=== PATIENT | female | born 1990 | race Two or more races ===

== ENCOUNTER → 2023-03-05 | Emergency (ER) | payer OTHER ==
[~2023-03-05] VITALS: Ht 147.3 cm; Wt 66.7 kg
[~2023-03-05] MED LIST: ANTICONCEPTIVOS
== END | disposition left against medical advice (07) ==
LOC: ER 13:02
DX: Z53.21 Procedure and treatment not carried out due to patient leaving prior to being seen by health care provider (principal)

== ENCOUNTER 2024-09-07 13:34 | Inpatient (IN) | payer OTHER ==
[~2024-09-07] VITALS: Ht 147.3 cm; Wt 85.7 kg
[2024-09-07 14:23] LABS: URINE BILIRRUBIN NEGATIVE (NEGATIVE); URINE BLOOD NEGATIVE; URINE GLUCOSE NEGATIVE (NEGATIVE); URINE KETONE NEGATIVE (NEGATIVE); URINE LEUKOCYTE NEGATIVE; URINE NITRATE NEGATIVE; URINE PROTEIN NEGATIVE (NEGATIVE); URINE UROBILINOGEN 0.2 E.U./dl
[2024-09-07 14:28] LABS: URINE BACTERIA 2396.2 uL (0.0-1933); URINE EPITHELIAL CELLS 20.2 uL (0.0-38.8); URINE RBC 2.2 uL (0.0-20.8); URINE WBC 21.5 uL (0.0-23.2)
[2024-09-07 14:31] LABS: BASO % 0.2 % (0.1-1.2); EOS # 0.32 (0.04-0.54); EOS % 2.4 % (0.7-7.0); HEMATOCRIT 36.4 % (34.1-44.9); HEMOGLOBIN 13.3 g/dL (11.2-15.7); LYMPH # 1.53 (1.18-3.74); LYMPH % 11.5 % (19.3-53.1); MEAN CORPUSCULAR HEMOGLOBIN 29.2 pg (25.6-32.2); MONO # 1.15 (0.24-0.82); MONO % 8.7 % (4.7-12.5); NEUT # 10.16 (1.56-6.13); NEUT % 76.6 % (34.0-71.1); PLATELET COUNT 160 K/uL (163-369); RED BLOOD COUNT 4.56 M/uL (3.93-5.22); RED CELL DISTRIBUTION WIDTH 13.6 % (11.6-14.4)
[2024-09-07 15:20] LABS: INR 0.99; PARTIAL THROMBOPLASTIN TIME 24.8 SECONDS (22.0-34.0); PROTHROMBIN TIME 10.8 SECONDS (9.0-11.5)
[2024-09-07 15:35] LABS: URINE COLOR YELLOW
[2024-09-07 15:36] LABS: URINE APPEARANCE SL CLOUDY
[2024-09-07 15:37] LABS: TYPE CELLS SQUAMOUS; URINE MUCUS SCANT
[2024-09-10 19:57] VITALS: BP 104/68
[2024-09-10] MEDS ORDERED: PRENATAL TABLE1 EAC4 PO (20:39)
[2024-09-10] MEDS ORDERED: ADULT LOW DOSE81 M1 PO (20:39)
[2024-09-10] MEDS ORDERED: ERYTHROMYCIN BASE OPHT 1GM EACH TUBE OP ONE ×2 (20:44→20:50)
[2024-09-10] MEDS ORDERED: OXYTOCIN 10 UNITS/ML VIAL ONE ×3 (20:44→20:50)
[2024-09-10] MEDS ORDERED: RINGERS SOLUTION,LACTATED 1,000 ML IV SCH ×2 (21:00→23:15)
[2024-09-10] MEDS ORDERED: CEFOXITIN SODIUM 2,000 MG VIAL IV ONE (21:11)
[2024-09-10] MEDS ORDERED: KETOROLAC TROMETHAMINE 60 MG VIAL IM STA (23:10)
[2024-09-10] MEDS ORDERED: CHLORHEXIDINE GLUCONATE 120 ML BOTTLE TOP ONE (23:15)
[2024-09-10] MEDS ORDERED: OXYTOCIN 1,000 ML IV SCH (23:15)
[2024-09-10] MEDS ORDERED: MORPHINE SULFATE 4 MG/ML VIAL IV PRN (23:30)
[2024-09-10] MEDS ORDERED: MORPHINE SULFATE 4 MG/ML VIAL IV ONE (23:40)
[2024-09-11] MEDS ORDERED: MORPHINE SULFATE 4 MG/ML VIAL IV ONE (00:10)
[2024-09-11] MEDS ORDERED: OXYTOCIN 10 UNITS/ML VIAL ONE (01:02)
[2024-09-11 02:03] LABS: BASO % 0.3 % (0.1-1.2); EOS # 0.14 (0.04-0.54); EOS % 0.7 % (0.7-7.0); HEMATOCRIT 30.2 % (34.1-44.9); HEMOGLOBIN 11.3 g/dL (11.2-15.7); LYMPH # 1.35 (1.18-3.74); LYMPH % 6.4 % (19.3-53.1); MONO % 6.1 % (4.7-12.5); NEUT # 18.24 (1.56-6.13); NEUT % 85.9 % (34.0-71.1); RED BLOOD COUNT 3.77 M/uL (3.93-5.22); RED CELL DISTRIBUTION WIDTH 13.4 % (11.6-14.4)
[2024-09-11 02:07] LABS: PLATELET COUNT 132 K/uL (163-369)
[2024-09-11 02:11] VITALS: BP 106/68
[2024-09-11 08:56] VITALS: BP 99/65
[2024-09-11] MEDS ORDERED: ACETAMINOPHEN WITH CODEINE 1 UDTAB TABLET PO PRN (09:00)
[2024-09-11 12:46] VITALS: BP 98/69
[2024-09-11 15:58] VITALS: BP 96/63
[2024-09-12 01:09] VITALS: BP 102/69
[2024-09-12 08:00] VITALS: BP 95/63
[2024-09-12 16:00] VITALS: BP 102/69
[2024-09-13] VITALS: BP 97/62
[2024-09-13 08:38] VITALS: BP 103/71
[2024-09-13] MEDS ORDERED: IBUprofen 600 MG TABLET PO PRN (12:45)
== END 2024-09-13 14:40 | disposition home or self-care (01) | DRG 785 ==
LOC: OB/GYN 09-10 20:40 → LDR 09-10 20:40 → O/R 09-10 21:30 → OB/GYN 09-10 23:12
PROVIDERS: ADMIT Obstetrics & Gynecology; ATTEND Obstetrics & Gynecology
PROC: 0UB70ZZ Excision of Bilateral Fallopian Tubes, Open Approach (ICD-10-PCS; 2024-09-10)
PROC: 4A1HXCZ Monitoring of Products of Conception, Cardiac Rate, External Approach (ICD-10-PCS; 2024-09-10)
PROC: 10D00Z1 Extraction of Products of Conception, Low, Open Approach (ICD-10-PCS; principal; 2024-09-10 20:00)
DX: O34.211 Maternal care for low transverse scar from previous cesarean delivery (principal); Z3A.38 38 weeks gestation of pregnancy; Z37.0 Single live birth; Z30.2 Encounter for sterilization